=== PATIENT | male | born 1960 ===

== ENCOUNTER 2018-11-25 16:08 | Inpatient (IN) | payer MEDICARE ==
[2018-11-25 17:02] LABS: BASO # 0.1 K/uL (0.0-0.2); BASO % 1.1 % (0.0-2.0); EOS # 0.1 K/uL (0.0-0.7); EOS % 1.7 % (0.0-4.0); HEMOGLOBIN 11.2 g/dL (12.0-18.0); LYMPH # 0.7 K/uL (1.0-4.3); LYMPH % 11.6 % (20.0-40.0); MEAN CELL VOLUME 92.4 fL (80.0-94.0); MEAN CORPUSCULAR HEMOGLOBIN 29.2 pg (27.0-31.0); MEAN CORPUSCULAR HGB CONC 31.7 g/dL (33.0-37.0); MEAN PLATELET VOLUME 7.6 fL (7.2-11.7); MONO # 0.8 K/uL (0.0-0.8); MONO % 14.5 % (0.0-10.0); NEUT % 71.1 % (50.0-75.0); NRBC % 0.1 % (0.0-2.0); RBC 3.82 Mil/uL (4.40-5.90); RED CELL DISTRIBUTION WIDTH 20.3 % (11.5-14.5); WHITE BLOOD COUNT 5.7 K/uL (4.8-10.8)
[2018-11-25 17:12] LABS: INR 1.6
--- NOTE | 2018-11-25 17:23 | C.PDOC ---
History Of Present Illness 57 y/o male,w/PMhx of HTN, hypercholesterolemia, and ESRD presents to the ER complaining of shortness of breath which has been present for the past 3 days. Patient states that he was evaluated by Dr. Tesfaye who referred him to the ER. Patient reports that he has dialysis on Mondays, Wednesdays, and Fridays. He notes that he is on Dobutamine for poor ejection fraction. He has a portacath to the right upper chest for the past 2 months. He is concerned there may be an infection in the area. Denies having fever,chills, CP, vomitng, and abdominal pain. Time Seen by Provider: 11/25/18 16:34 Chief Complaint (Nursing): Shortness Of Breath History Per: Patient History/Exam Limitations: no limitations Onset/Duration Of Symptoms: Days Current Symptoms Are (Timing): Still Present Severity: Moderate Past Medical History Reviewed: Historical Data, Nursing Documentation, Vital Signs Vital Signs: Last Vital Signs Temp 97.7 F 11/25/18 16:14 Pulse 90 11/25/18 16:14 Resp 18 11/25/18 16:50 BP 104/72 11/25/18 16:14 Pulse Ox 99 11/25/18 16:14 - Medical History PMH: HTN, Hypercholesterolemia, End Stage Renal Disease Other Surgeries: Hx of surgeries Family History: States: No Known Family Hx - Social History Hx Alcohol Use: No Hx Substance Use: No - Immunization History Hx Tetanus Toxoid Vaccination: No Hx Influenza Vaccination: Yes Hx Pneumococcal Vaccination: No Review Of Systems Except As Marked, All Systems Reviewed And Found Negative. Constitutional: Negative for: Fever, Chills Cardiovascular: Negative for: Chest Pain Respiratory: Positive for: Shortness of Breath Gastrointestinal: Negative for: Nausea, Vomiting Physical Exam - Physical Exam Appears: Non-toxic, No Acute Distress Skin: Normal Color, Warm, Dry Head: Atraumatic, Normacephalic Eye(s): bilateral: Normal Inspection Nose: Normal Oral Mucosa: Moist Neck: Supple Chest: Symmetrical, Other (catheter in right upper chest) Cardiovascular: Rhythm Regular Respiratory: Rales (rales in bases bilaterally), No Rhonchi, No Wheezing Neurological/Psych: Oriented x3, Normal Speech ED Course And Treatment - Laboratory Results Result Diagrams: 11/25/18 16:58 11/25/18 16:58 Lab Results: PT 18.0 SECONDS (9.7-12.2) H 11/25/18 16:58 INR 1.6 11/25/18 16:58 APTT 43 SECONDS (21-34) H 11/25/18 16:58 Lab Interpretation: Abnormal (trop neg, BNP 15,800 H) ECG Rhythm: V Paced ECG Interpretation: Normal Rate From EC O2 Sat by Pulse Oximetry: 99 (RA) Pulse Ox Interpretation: Normal - Radiology CXR: Interpreted by Me CXR Interpretation: Yes: Other (+CHF) Reevaluation Time: 18:30 Reassessment Condition: Improved - Physician Consult Information Outcome Of Conversation: 1635: d/w Dr. Boggs ok to adm. 1800: dw Dr. Simeon in ED, ok to consult Medical Decision Making Medical Decision Making: Plan: --Labs --ECG --CXR Updates: 16:35 Case discussed with patient's PMD, . advises for patient to be admitted. Disposition Doctor Will See Patient In The: Hospital Counseled Patient/Family Regarding: Studies Performed, Diagnosis - Disposition Disposition: HOSPITALIZED Disposition Time: 19:12 Condition: GOOD - Clinical Impression Clinical Impression: Chronic congestive heart failure, ESRD (end stage renal disease) on dialysis - Scribe Statement The provider has reviewed the documentation as recorded by the Eliza Landis Provider Attestation: All medical record entries made by the Jerryibe were at my direction and personally dictated by me. I have reviewed the chart and agree that the record accurately reflects my personal performance of the history, physical exam, medical decision making, and the department course for this patient. I have also personally directed, reviewed, and agree with the discharge instructions and disposition.
[2018-11-25 17:30] LABS: ALB/GLOB RATIO 1.1 (1.0-2.1); ALBUMIN 3.7 g/dL (3.5-5.0); CALCIUM 8.9 mg/dl (8.6-10.4)
--- NOTE | 2018-11-25 17:36 | C.PDOC ---
Time Seen by Provider: 11/25/18 16:34 Chief Complaint (Nursing): Shortness Of Breath Past Medical History Vital Signs: Last Vital Signs Temp 97.7 F 11/25/18 16:14 Pulse 90 11/25/18 16:14 Resp 22 11/25/18 16:14 BP 104/72 11/25/18 16:14 Pulse Ox 99 11/25/18 16:14 - Medical History PMH: HTN, Hypercholesterolemia, End Stage Renal Disease - Social History Hx Alcohol Use: No Hx Substance Use: No - Immunization History Hx Tetanus Toxoid Vaccination: No Hx Influenza Vaccination: Yes Hx Pneumococcal Vaccination: No ED Course And Treatment O2 Sat by Pulse Oximetry: 99 Disposition - Disposition
[2018-11-25 17:41] LABS: TROPONIN I 0.03 ng/mL (0.00-0.120)
--- NOTE | 2018-11-25 17:46 | RAD ---
HISTORY: SOB COMPARISON: None available. TECHNIQUE: Chest, one view. FINDINGS: Examination limited by habitus and hypoinflation. Right IJ approach dialysis catheter with distal tips at the SVC/cavoatrial junction. LUNGS: Central vascular and mild pulmonary venous congestion. Small left pleural effusion associated consolidation. No definite pneumothorax. Please note that chest x-ray has limited sensitivity for the detection of pulmonary masses. CARDIOVASCULAR: Cardiomegaly. No significant atherosclerotic calcification present. OSSEOUS STRUCTURES: No acute osseous abnormality identified. VISUALIZED UPPER ABDOMEN: Unremarkable. OTHER FINDINGS: None. IMPRESSION: Right IJ approach dialysis catheter with distal tips at the SVC/cavoatrial junction. Central vascular and mild pulmonary venous congestion. Small left pleural effusion associated consolidation. Cardiomegaly.
--- NOTE | 2018-11-25 18:16 | CP.PCM.HP ---
Past Patient History - Infectious Disease Hx of Infectious Diseases: None - Past Social History Smoking Status: Never Smoked - CARDIAC Hx Hypercholesterolemia: Yes Hx Hypertension: Yes - PULMONARY Hx Respiratory Disorders: No - RENAL Hx Dialysis: Yes (MWF) Type of Dialysis Access: Right subclavian HD catheter Date of Last Dialysis Treatment: 11/24/18 - PSYCHIATRIC Hx Substance Use: No - SURGICAL HISTORY Hx Surgeries: Yes Other/Comment: AICD placement and permacath cath placement - ANESTHESIA Hx Anesthesia: Yes Hx Anesthesia Reactions: No Hx Malignant Hyperthermia: No Meds Allergies/Adverse Reactions: Allergies Allergy/AdvReac Type Severity Reaction Status Date / Time No Known Allergies Allergy Verified 11/25/18 16:20 Results - Vital Signs Recent Vital Signs: Last Vital Signs Temp 97.7 F 11/25/18 16:14 Pulse 90 11/25/18 16:14 Resp 18 11/25/18 16:50 BP 104/72 11/25/18 16:14 Pulse Ox 99 11/25/18 17:32 - Labs Result Diagrams: 11/25/18 16:58 11/25/18 16:58 Labs: Laboratory Results - last 24 hr 11/25/18 11/25/18 11/25/18 16:58 16:58 16:58 WBC 5.7 RBC 3.82 L Hgb 11.2 L Hct 35.3 MCV 92.4 MCH 29.2 MCHC 31.7 L RDW 20.3 H Plt Count 216 MPV 7.6 Neut % (Auto) 71.1 Lymph % (Auto) 11.6 L [place] % (Auto) 14.5 H Eos % (Auto) 1.7 Baso % (Auto) 1.1 Neut # (Auto) 4.0 Lymph # (Auto) 0.7 L [place] # (Auto) 0.8 Eos # (Auto) 0.1 Baso # (Auto) 0.1 PT 18.0 H INR 1.6 APTT 43 H Sodium 135 Potassium 3.0 L Chloride 95 L Carbon Dioxide 33 H Anion Gap 10 BUN 19 Creatinine 3.4 H Est GFR ( Amer) 23 Est GFR (Non-Af Amer) 19 Random Glucose 108 Calcium 8.9 Total Bilirubin 0.8 AST 34 ALT 28 Alkaline Phosphatase 93 Troponin I 0.0300 NT-Pro-B Natriuret Pep 57894 H Total Protein 6.9 Albumin 3.7 Globulin 3.3 Albumin/Globulin Ratio 1.1
--- NOTE | 2018-11-25 19:45 | CP.PCM.CON ---
History of Present Illness - History of Present Illness History of Present Illness: Vascular Surgery Consult for Dr. Simeon Reason for consult: ESRD on HD, need AVF 57 M with PMH that includes CHF ESRD on HD MWF, cardiomyopathy, SVT, s/p AICD placement and s/p right IJ permcath presents to [facility] with complaint of SOB. Patient seen and evaluated in the ED. Patient states that he developed difficulty breathing over the last two days. He reports that he can only walk two blocks before getting SOB. He uses two pillows at night. Patient unsure of last echo. He had recent [place] [facility] [place] and bacteremia. Patient reports that he makes urine but does not produce much. Patient takes inotropes at home. Currently denies fever/chills, cp, SOB, abd pain, n/v/d, urinary symptoms. Vascular surgery consulted for AVF access. PMH: CHF, ESRD on HD (MWF), cardiomyopathy, SVT PSH: AICD placement, RIJ permacath ALL: NKDA Review of Systems - Review of Systems All systems: reviewed and no additional remarkable complaints except (as per HPI) Past Patient History - Infectious Disease Hx of Infectious Diseases: None - Past Social History Smoking Status: Never Smoked - CARDIAC Hx Hypercholesterolemia: Yes Hx Hypertension: Yes - PULMONARY Hx Respiratory Disorders: No - RENAL Hx Dialysis: Yes (MWF) Type of Dialysis Access: Right subclavian HD catheter Date of Last Dialysis Treatment: 11/24/18 - PSYCHIATRIC Hx Substance Use: No - SURGICAL HISTORY Hx Surgeries: Yes Other/Comment: AICD placement and permacath cath placement - ANESTHESIA Hx Anesthesia: Yes Hx Anesthesia Reactions: No Hx Malignant Hyperthermia: No Meds Allergies/Adverse Reactions: Allergies Allergy/AdvReac Type Severity Reaction Status Date / Time No Known Allergies Allergy Verified 11/25/18 16:20 - Medications Medications: Current Medications Amiodarone HCl (Cordarone) 400 mg PO DAILY [facility] Aspirin (Aspirin Chewable) 81 mg PO DAILY [facility] Ezetimibe (Zetia) 10 mg PO DAILY [facility] Furosemide (Lasix) 40 mg PO DAILY [facility] Heparin Sodium (Porcine) (Heparin) 5,000 units SC Q8 [facility] Home Med (Febuxostat [Uloric]) 40 mg PO DAILY [facility] Midodrine (Proamatine) 5 mg PO TID [facility] Rosuvastatin Calcium (Crestor) 10 mg PO HS [facility] Tamsulosin HCl (Flomax) 0.4 mg PO DAILY [facility] Physical Exam - Constitutional Appears: No Acute Distress - Head Exam Head Exam: ATRAUMATIC, NORMOCEPHALIC - Eye Exam Eye Exam: EOMI Pupil Exam: PERRL - ENT Exam ENT Exam: Mucous Membranes Moist - Respiratory Exam Respiratory Exam: NORMAL BREATHING PATTERN - Cardiovascular Exam Cardiovascular Exam: REGULAR RHYTHM - GI/Abdominal Exam GI & Abdominal Exam: Normal Bowel Sounds, Soft. absent: Distended, Firm, [place] ound, Rigid, Tenderness - Extremities Exam Extremities exam: Positive for: normal capillary refill, pedal edema, pedal pulses present - Back Exam Back exam: absent: CVA tenderness (L), CVA tenderness (R) - Neurological Exam Neurological exam: Alert, CN II-XII Intact, Oriented x3 - Psychiatric Exam Psychiatric exam: Normal Affect, Normal Mood - Skin Skin Exam: Dry, Intact, Warm Results - Vital Signs Recent Vital Signs: Last Vital Signs Temp 98.2 F 11/25/18 19:28 Pulse 80 11/25/18 19:28 Resp 22 11/25/18 19:28 BP 120/83 11/25/18 19:28 Pulse Ox 97 11/25/18 19:28 - Labs Result Diagrams: 11/25/18 16:58 11/25/18 16:58 Labs: Laboratory Results - last 24 hr 11/25/18 11/25/18 11/25/18 16:58 16:58 16:58 WBC 5.7 RBC 3.82 L Hgb 11.2 L Hct 35.3 MCV 92.4 MCH 29.2 MCHC 31.7 L RDW 20.3 H Plt Count 216 MPV 7.6 Neut % (Auto) 71.1 Lymph % (Auto) 11.6 L [place] % (Auto) 14.5 H Eos % (Auto) 1.7 Baso % (Auto) 1.1 Neut # (Auto) 4.0 Lymph # (Auto) 0.7 L [place] # (Auto) 0.8 Eos # (Auto) 0.1 Baso # (Auto) 0.1 PT 18.0 H INR 1.6 APTT 43 H Sodium 135 Potassium 3.0 L Chloride 95 L Carbon Dioxide 33 H Anion Gap 10 BUN 19 Creatinine 3.4 H Est GFR ( Amer) 23 Est GFR (Non-Af Amer) 19 Random Glucose 108 Calcium 8.9 Total Bilirubin 0.8 AST 34 ALT 28 Alkaline Phosphatase 93 Troponin I 0.0300 NT-Pro-B Natriuret Pep 86307 H Total Protein 6.9 Albumin 3.7 Globulin 3.3 Albumin/Globulin Ratio 1.1 Assessment & Plan - Assessment and Plan (Free Text) Assessment: 57M with PMH of ESRD on HD who presents with SOB requiring AVF access Plan: -f/u vein mapping -Arm restriction after vein mapping -Please no antecubital IVs due to possibility of AVF -Medicine and cardiac risk stratification before OR -Plan for OR tuesday 11/28 if plausible -Discussed with Dr. Cailin Ruiz PGY2 - Date & Time Date: 11/25/18 Time: 19:00
[2018-11-25] MEDS ORDERED: Promethazine 6.25 MG/5 ML CUP PO PRN (21:19)
[2018-11-25] MEDS: Promethazine 6.25 MG/5 ML CUP PO PRN (21:58)
--- NOTE | 2018-11-26 07:27 | CP.PCM.CON ---
History of Present Illness - History of Present Illness History of Present Illness: 57 yo male, known to me, history of cardiomyopathy, SVT, recent start of HD. On HD M,W,F. Using a right IJ permcath. Recent admit to [facility] for CHF, bacteremia. Now presents with increased SOB on exertion. Last HD on Saturday, 2 kg uf. No chest pain or palpitations. No fever or chills. Minimal urine production. Not clear how much he drinks. On inotropes at home. Review of Systems - Constitutional Constitutional: Fatigue. absent: Fever - EENT Eyes: absent: Blurred Vision, Change in Vision Nose/Mouth/Throat: absent: Epistaxis, Nasal Congestion - Cardiovascular Cardiovascular: Dyspnea on Exertion, Edema - Respiratory Respiratory: absent: Cough, Wheezing - Gastrointestinal Gastrointestinal: absent: Abdominal Pain - Genitourinary Genitourinary: Change in Urinary Stream - Musculoskeletal Musculoskeletal: absent: Muscle Cramps, Muscle Weakness - Hematologic/Lymphatic Hematologic: absent: Easy Bleeding, Easy Bruising Past Patient History - Infectious Disease Hx of Infectious Diseases: None - Past Social History Smoking Status: Never Smoked - CARDIAC Hx Hypercholesterolemia: Yes Hx Hypertension: Yes - PULMONARY Hx Respiratory Disorders: No - RENAL Hx Dialysis: Yes (MWF) Type of Dialysis Access: Right subclavian HD catheter Date of Last Dialysis Treatment: 11/24/18 - PSYCHIATRIC Hx Substance Use: No - SURGICAL HISTORY Hx Surgeries: Yes Other/Comment: AICD placement and permacath cath placement - ANESTHESIA Hx Anesthesia: Yes Hx Anesthesia Reactions: No Hx Malignant Hyperthermia: No Meds Allergies/Adverse Reactions: Allergies Allergy/AdvReac Type Severity Reaction Status Date / Time No Known Allergies Allergy Verified 11/25/18 16:20 - Medications Medications: Current Medications Amiodarone HCl (Cordarone) 400 mg PO DAILY [facility] Aspirin (Aspirin Chewable) 81 mg PO DAILY [facility] Ezetimibe (Zetia) 10 mg PO DAILY [facility] Furosemide (Lasix) 40 mg PO DAILY [facility] Heparin Sodium (Porcine) (Heparin) 5,000 units SC Q8 [facility] Last Admin: 11/26/18 06:40 Dose: Not Given Home Med (Febuxostat [Uloric]) 40 mg PO DAILY [facility] Midodrine (Proamatine) 5 mg PO TID [facility] Promethazine HCl (Phenergan Syrup) 12.5 mg PO Q6H PRN PRN Reason: Cough Last Admin: 11/25/18 21:58 Dose: 12.5 mg Rosuvastatin Calcium (Crestor) 10 mg PO HS [facility] Last Admin: 11/25/18 22:00 Dose: 10 mg Tamsulosin HCl (Flomax) 0.4 mg PO DAILY [facility] Zolpidem Tartrate (Ambien) 5 mg PO HS PRN PRN Reason: Insomnia Last Admin: 11/25/18 21:58 Dose: 5 mg Physical Exam - Constitutional Appears: Non-toxic, Chronically Ill - Head Exam Head Exam: ATRAUMATIC, NORMAL INSPECTION - Eye Exam Eye Exam: EOMI - ENT Exam ENT Exam: Mucous Membranes Dry - Neck Exam Neck exam: Positive for: Full Rom. Negative for: Lymphadenopathy - Respiratory Exam Respiratory Exam: Decreased Breath Sounds, Rales - Cardiovascular Exam Cardiovascular Exam: REGULAR RHYTHM. absent: Rubs - GI/Abdominal Exam GI & Abdominal Exam: Distended, Firm. absent: Guarding - Extremities Exam Extremities exam: Positive for: pedal edema - Neurological Exam Neurological exam: Alert, Oriented x3 - Psychiatric Exam Psychiatric exam: Normal Affect, Normal Mood Results - Vital Signs Recent Vital Signs: Last Vital Signs Temp 98.2 F 11/25/18 23:30 Pulse 81 11/26/18 01:00 Resp 20 11/25/18 23:30 BP 118/85 11/25/18 23:30 Pulse Ox 99 11/25/18 23:30 - Labs Result Diagrams: 11/25/18 16:58 11/25/18 16:58 Labs: Laboratory Results - last 24 hr 11/25/18 11/25/18 11/25/18 16:58 16:58 16:58 WBC 5.7 RBC 3.82 L Hgb 11.2 L Hct 35.3 MCV 92.4 MCH 29.2 MCHC 31.7 L RDW 20.3 H Plt Count 216 MPV 7.6 Neut % (Auto) 71.1 Lymph % (Auto) 11.6 L [place] % (Auto) 14.5 H Eos % (Auto) 1.7 Baso % (Auto) 1.1 Neut # (Auto) 4.0 Lymph # (Auto) 0.7 L [place] # (Auto) 0.8 Eos # (Auto) 0.1 Baso # (Auto) 0.1 PT 18.0 H INR 1.6 APTT 43 H Sodium 135 Potassium 3.0 L Chloride 95 L Carbon Dioxide 33 H Anion Gap 10 BUN 19 Creatinine 3.4 H Est GFR ( Amer) 23 Est GFR (Non-Af Amer) 19 Random Glucose 108 Calcium 8.9 Total Bilirubin 0.8 AST 34 ALT 28 Alkaline Phosphatase 93 Troponin I 0.0300 NT-Pro-B Natriuret Pep 98493 H Total Protein 6.9 Albumin 3.7 Globulin 3.3 Albumin/Globulin Ratio 1.1 Assessment & Plan - Assessment and Plan (Free Text) Assessment: dialysis dependent, xray with suggestion of fluid overload increase goal on HD today and consider extra treatment in am 3K bath on HD cardiology to see, repeat echo try to obtain TROY on admission fluid restriction
[2018-11-26 12:08] LABS: CALCIUM 8.9 mg/dl (8.6-10.4)
--- NOTE | 2018-11-26 13:02 | CP.PCM.PN ---
Subjective - Date & Time of Evaluation Date of Evaluation: 11/26/18 Time of Evaluation: 10:30 - Subjective Subjective: Vascular Surgery Dr. Simeon Pt seen and examined @bedside. No acute events overnight. Pt has no complaints. reports improved SOB, though still present w/ exertion. Objective - Vital Signs/Intake and Output Vital Signs (last 24 hours): Temp Pulse Resp BP Pulse Ox 98.1 F 80 20 131/91 H 92 L 11/26/18 07:00 11/26/18 07:00 11/26/18 07:00 11/26/18 11:07 11/26/18 07:00 - Medications Medications: Current Medications Amiodarone HCl (Cordarone) 400 mg PO DAILY [facility] Last Admin: 11/26/18 11:04 Dose: 400 mg Aspirin (Aspirin Chewable) 81 mg PO DAILY [facility] Last Admin: 11/26/18 11:09 Dose: Not Given Ezetimibe (Zetia) 10 mg PO DAILY [facility] Last Admin: 11/26/18 11:18 Dose: 10 mg Furosemide (Lasix) 40 mg PO DAILY [facility] Last Admin: 11/26/18 11:07 Dose: 40 mg Heparin Sodium (Porcine) (Heparin) 5,000 units SC Q8 [facility] Last Admin: 11/26/18 06:40 Dose: Not Given Home Med (Febuxostat [Uloric]) 40 mg PO DAILY [facility] Midodrine (Proamatine) 5 mg PO TID [facility] Last Admin: 11/26/18 11:18 Dose: 5 mg Promethazine HCl (Phenergan Syrup) 12.5 mg PO Q6H PRN PRN Reason: Cough Last Admin: 11/25/18 21:58 Dose: 12.5 mg Rosuvastatin Calcium (Crestor) 10 mg PO HS [facility] Last Admin: 11/25/18 22:00 Dose: 10 mg Tamsulosin HCl (Flomax) 0.4 mg PO DAILY [facility] Last Admin: 11/26/18 11:04 Dose: 0.4 mg Zolpidem Tartrate (Ambien) 5 mg PO HS PRN PRN Reason: Insomnia Last Admin: 11/25/18 21:58 Dose: 5 mg - Labs Labs: 11/25/18 16:58 11/26/18 11:33 PT 18.0 SECONDS (9.7-12.2) H 11/25/18 16:58 INR 1.6 11/25/18 16:58 APTT 43 SECONDS (21-34) H 11/25/18 16:58 - Constitutional Appears: Non-toxic, No Acute Distress - Head Exam Head Exam: NORMAL INSPECTION - Eye Exam Eye Exam: Normal appearance - ENT Exam ENT Exam: Mucous Membranes Moist - Respiratory Exam Respiratory Exam: NORMAL BREATHING PATTERN. absent: Accessory Muscle Use, Respiratory Distress - Cardiovascular Exam Cardiovascular Exam: REGULAR RHYTHM. absent: Bradycardia, Tachycardia - GI/Abdominal Exam GI & Abdominal Exam: Soft. absent: Distended, Tenderness - Extremities Exam Extremities Exam: Normal Inspection - Neurological Exam Neurological Exam: Alert, Awake, Oriented x3 - Psychiatric Exam Psychiatric exam: Normal Affect, Normal Mood - Skin Skin Exam: Dry, Intact, Normal Color, Warm Assessment and Plan - Assessment and Plan (Free Text) Assessment: 57 y/o M w/ ESRD on HD MWF, requiring AVF creation Plan: - needs cardiac workup - f/u vein mapping - OR tentatively planned for Saturday - cont medical management Pt discussed w/ Dr. Cailin Ace DO PGY3
--- NOTE | 2018-11-26 18:30 | CARD ---
APPROVED REPORT Date of service: 11/25/2018 EKG Measurement Heart [id number] <Conclusion> Ventricular-paced rhythm Abnormal ECG
--- NOTE | 2018-11-26 19:09 | CP.PCM.PN ---
Subjective - Date & Time of Evaluation Date of Evaluation: 11/26/18 Time of Evaluation: 19:09 Objective - Vital Signs/Intake and Output Vital Signs (last 24 hours): Temp Pulse Resp BP Pulse Ox 99.7 F H 82 20 125/87 100 11/26/18 18:11 11/26/18 18:11 11/26/18 18:11 11/26/18 18:11 11/26/18 18:11 - Medications Medications: Current Medications Amiodarone HCl (Cordarone) 400 mg PO DAILY [facility] Last Admin: 11/26/18 11:04 Dose: 400 mg Aspirin (Aspirin Chewable) 81 mg PO DAILY [facility] Last Admin: 11/26/18 11:09 Dose: Not Given Ezetimibe (Zetia) 10 mg PO DAILY [facility] Last Admin: 11/26/18 11:18 Dose: 10 mg Furosemide (Lasix) 40 mg PO DAILY [facility] Last Admin: 11/26/18 11:07 Dose: 40 mg Heparin Sodium (Porcine) (Heparin) 5,000 units SC Q8 [facility] Last Admin: 11/26/18 15:14 Dose: Not Given Heparin Sodium (Porcine) (Heparin (For Dialysis)) 4,100 units IVP MWF [facility] Last Admin: 11/26/18 17:33 Dose: 4,100 units Home Med (Febuxostat [Uloric]) 40 mg PO DAILY [facility] Midodrine (Proamatine) 5 mg PO TID [facility] Last Admin: 11/26/18 18:13 Dose: 5 mg Promethazine HCl (Phenergan Syrup) 12.5 mg PO Q6H PRN PRN Reason: Cough Last Admin: 11/25/18 21:58 Dose: 12.5 mg Rosuvastatin Calcium (Crestor) 10 mg PO HS [facility] Last Admin: 11/25/18 22:00 Dose: 10 mg Tamsulosin HCl (Flomax) 0.4 mg PO DAILY [facility] Last Admin: 11/26/18 11:04 Dose: 0.4 mg Zolpidem Tartrate (Ambien) 5 mg PO HS PRN PRN Reason: Insomnia Last Admin: 11/25/18 21:58 Dose: 5 mg - Labs Labs: 11/25/18 16:58 11/26/18 11:33 PT 18.0 SECONDS (9.7-12.2) H 11/25/18 16:58 INR 1.6 11/25/18 16:58 APTT 43 SECONDS (21-34) H 11/25/18 16:58 Assessment and Plan (1) CHF exacerbation Status: Acute (2) Cardiomegaly Status: Acute (3) Chronic congestive heart failure Status: Acute (4) ESRD (end stage renal disease) on dialysis Status: Acute
[2018-11-26] MEDS: Promethazine 6.25 MG/5 ML CUP PO PRN (21:59)
--- NOTE | 2018-11-27 08:01 | CP.PCM.PN ---
Subjective - Date & Time of Evaluation Date of Evaluation: 11/27/18 Time of Evaluation: 07:59 - Subjective Subjective: SURGERY NOTE FOR DR. CATHERINE 57M seen and examined at bedside. Patient doing well no acute events overnight. Objective - Vital Signs/Intake and Output Vital Signs (last 24 hours): Temp Pulse Resp BP Pulse Ox 98.8 F 81 20 109/69 96 11/26/18 23:30 11/27/18 01:00 11/26/18 23:30 11/26/18 23:30 11/26/18 23:30 - Medications Medications: Current Medications Amiodarone HCl (Cordarone) 400 mg PO DAILY [facility] Last Admin: 11/26/18 11:04 Dose: 400 mg Aspirin (Aspirin Chewable) 81 mg PO DAILY [facility] Last Admin: 11/26/18 11:09 Dose: Not Given Ezetimibe (Zetia) 10 mg PO DAILY [facility] Last Admin: 11/26/18 11:18 Dose: 10 mg Furosemide (Lasix) 40 mg PO DAILY [facility] Last Admin: 11/26/18 11:07 Dose: 40 mg Heparin Sodium (Porcine) (Heparin) 5,000 units SC Q8 [facility] Last Admin: 11/27/18 06:17 Dose: 5,000 units Heparin Sodium (Porcine) (Heparin (For Dialysis)) 4,100 units IVP MWF [facility] Last Admin: 11/26/18 17:33 Dose: 4,100 units Home Med (Febuxostat [Uloric]) 40 mg PO DAILY [facility] Midodrine (Proamatine) 5 mg PO TID [facility] Last Admin: 11/26/18 18:13 Dose: 5 mg Promethazine HCl (Phenergan Syrup) 12.5 mg PO Q6H PRN PRN Reason: Cough Last Admin: 11/26/18 21:59 Dose: 12.5 mg Rosuvastatin Calcium (Crestor) 10 mg PO HS [facility] Last Admin: 11/26/18 21:58 Dose: 10 mg Tamsulosin HCl (Flomax) 0.4 mg PO DAILY [facility] Last Admin: 11/26/18 11:04 Dose: 0.4 mg Zolpidem Tartrate (Ambien) 5 mg PO HS PRN PRN Reason: Insomnia Last Admin: 11/25/18 21:58 Dose: 5 mg - Labs Labs: 11/25/18 16:58 11/26/18 11:33 PT 18.0 SECONDS (9.7-12.2) H 11/25/18 16:58 INR 1.6 11/25/18 16:58 APTT 43 SECONDS (21-34) H 11/25/18 16:58 - Constitutional Appears: Non-toxic, No Acute Distress - Respiratory Exam Respiratory Exam: Clear to Ausculation Bilateral, NORMAL BREATHING PATTERN - Cardiovascular Exam Cardiovascular Exam: REGULAR RHYTHM, +S1, +S2 - GI/Abdominal Exam GI & Abdominal Exam: Soft. absent: Distended, Firm, Guarding, Rigid, Tenderness - Extremities Exam Extremities Exam: absent: Pedal Edema, Tenderness - Neurological Exam Neurological Exam: Alert, Awake Assessment and Plan - Assessment and Plan (Free Text) Assessment: 57M with ESRD requiring dialysis Plan: - Plan AVF for Saturday - Awaiting cardiac clearance - Will pre-op Further recs per Dr. Cailin Matos, PGY3
--- NOTE | 2018-11-27 10:00 | CP.PCM.PN ---
Subjective - Date & Time of Evaluation Date of Evaluation: 11/27/18 Time of Evaluation: 09:58 - Subjective Subjective: Less dyspneic awaiting AV fistula creation; off anticoagulants now BP controlled no more dyspnea; no CPs, n, vomiting, chills, fevers Objective - Vital Signs/Intake and Output Vital Signs (last 24 hours): Temp Pulse Resp BP Pulse Ox 98.1 F 80 20 117/79 94 L 11/27/18 07:45 11/27/18 07:45 11/27/18 07:45 11/27/18 09:37 11/27/18 07:45 - Medications Medications: Current Medications Amiodarone HCl (Cordarone) 400 mg PO DAILY [facility] Last Admin: 11/27/18 09:35 Dose: 400 mg Aspirin (Aspirin Chewable) 81 mg PO DAILY [facility] Last Admin: 11/27/18 09:35 Dose: 81 mg Ezetimibe (Zetia) 10 mg PO DAILY [facility] Last Admin: 11/27/18 09:36 Dose: 10 mg Heparin Sodium (Porcine) (Heparin) 5,000 units SC Q8 [facility] Last Admin: 11/27/18 06:17 Dose: 5,000 units Heparin Sodium (Porcine) (Heparin (For Dialysis)) 4,100 units IVP MWF [facility] Last Admin: 11/26/18 17:33 Dose: 4,100 units Home Med (Febuxostat [Uloric]) 40 mg PO DAILY [facility] Midodrine (Proamatine) 5 mg PO TID [facility] Last Admin: 11/27/18 09:36 Dose: 5 mg Promethazine HCl (Phenergan Syrup) 12.5 mg PO Q6H PRN PRN Reason: Cough Last Admin: 11/26/18 21:59 Dose: 12.5 mg Rosuvastatin Calcium (Crestor) 10 mg PO HS [facility] Last Admin: 11/26/18 21:58 Dose: 10 mg Tamsulosin HCl (Flomax) 0.4 mg PO DAILY [facility] Last Admin: 11/27/18 09:35 Dose: 0.4 mg Zolpidem Tartrate (Ambien) 5 mg PO HS PRN PRN Reason: Insomnia Last Admin: 11/25/18 21:58 Dose: 5 mg - Labs Labs: 11/25/18 16:58 11/26/18 11:33 PT 18.0 SECONDS (9.7-12.2) H 11/25/18 16:58 INR 1.6 11/25/18 16:58 APTT 43 SECONDS (21-34) H 11/25/18 16:58 - Constitutional Appears: No Acute Distress, Chronically Ill - Head Exam Head Exam: ATRAUMATIC, NORMAL INSPECTION - Eye Exam Eye Exam: EOMI, Normal appearance - Neck Exam Neck Exam: Normal Inspection. absent: Tenderness - Respiratory Exam Respiratory Exam: Clear to Ausculation Bilateral, NORMAL BREATHING PATTERN - Cardiovascular Exam Cardiovascular Exam: REGULAR RHYTHM, +S1 - GI/Abdominal Exam GI & Abdominal Exam: Soft. absent: Tenderness - Extremities Exam Extremities Exam: Normal Inspection. absent: Tenderness - Neurological Exam Neurological Exam: Awake, CN II-XII Intact - Skin Skin Exam: Dry, Warm Assessment and Plan (1) CHF exacerbation Status: Acute (2) ESRD (end stage renal disease) on dialysis Status: Acute (3) Cardiomegaly Status: Acute - Assessment and Plan (Free Text) Plan: dialysis today- as possible AV access surgery in AM Adequate UF goal- CHF prevention Await surgery
--- NOTE | 2018-11-27 12:49 | VASCLAB ---
Date of service: 11/26/2018 PROCEDURE: Upper Extremity Venous Mapping HISTORY: Vein mapping, Renal Failure, Pre-op AVF PRIORS: None. TECHNIQUE: Bilateral upper extremity, internal jugular, subclavian, axillary, brachial, ulnar, radial, basilic and upper cephalic veins were evaluated. Flow was assessed with color Doppler, compressibility, assessment of phasic flow and augmentation response. Report prepared by JAIRO Martin FINDINGS: RIGHT: 1. Internal Jugular Vein: 2. Subclavian Vein: 3. Axillary Vein: Compressibility - Fully compressible: Thrombus - None 4. Brachial Vein: Compressibility - Fully compressible: Thrombus - None 5. Ulnar Vein:Compressibility - Fully compressible: Thrombus - None 6. Radial Vein:Compressibility - Fully compressible: Thrombus - None 7. Cephalic Vein: Compressibility - Fully compressible: thrombus - None 7.1. Upper Arm: Mid Diameter: 0.67cm. Distal Diameter: 0.71cm. 7.2. Forearm: Proximal Diameter: 0.52cm. Mid Diameter:0.34cm. Distal Diameter: 0.29cm 8. Basilic Vein:Compressibility - Fully compressible: thrombus - None 8.1. Upper Arm:Proximal Diameter: 0.49cm. Mid Diameter: 0.41cm. Distal Diameter: 0.27cm. 8.2. Forearm: Proximal Diameter: 0.29cm. Mid Diameter:0.25cm. Distal Diameter: 0.29cm. LEFT: 1. Internal Jugular Vein: Compressibility - Fully compressible: Thrombus - None : Flow - Phasic 2. Subclavian Vein:Compressibility - Fully compressible: Thrombus - None : Flow - Phasic 3. Axillary Vein: Compressibility - Fully compressible: Thrombus - None 4. Brachial Vein: Compressibility - Fully compressible: Thrombus - None 5. Ulnar Vein:Compressibility - Fully compressible: Thrombus - None 6. Radial Vein:Compressibility - Fully compressible: Thrombus - None 7. Cephalic Vein: Compressibility - Fully compressible: thrombus - None 7.1. Upper Arm: Proximal Diameter: 0.54cm. Mid Diameter: 0.52cm. Distal Diameter: 0.63cm. 7.2. Forearm: Proximal Diameter: 0.41cm. Mid Diameter:0.41cm. Distal Diameter: 0.42cm 8. Basilic Vein:Compressibility - Fully compressible: thrombus - None 8.1. Upper Arm: Mid Diameter: 0.60cm. Distal Diameter: 0.53cm. 8.2. Forearm: Proximal Diameter: 0.44cm. Mid Diameter:0.21cm. OTHER FINDINGS: No evidence of venous thrombosis in bilateral upper extremities. IMPRESSION: Refer to the above listed measurements for vein size.
--- NOTE | 2018-11-27 13:54 | CP.PCM.PN ---
Subjective - Date & Time of Evaluation Date of Evaluation: 11/27/18 Time of Evaluation: 13:50 - Subjective Subjective: Pt is seen and examined No events overnight Reports improved dyspnea Objective - Vital Signs/Intake and Output Vital Signs (last 24 hours): Temp Pulse Resp BP Pulse Ox 98.1 F 80 20 117/79 94 L 11/27/18 07:45 11/27/18 07:45 11/27/18 07:45 11/27/18 09:37 11/27/18 07:45 - Medications Medications: Current Medications Amiodarone HCl (Cordarone) 400 mg PO DAILY [facility] Last Admin: 11/27/18 09:35 Dose: 400 mg Aspirin (Aspirin Chewable) 81 mg PO DAILY [facility] Last Admin: 11/27/18 09:35 Dose: 81 mg Ezetimibe (Zetia) 10 mg PO DAILY [facility] Last Admin: 11/27/18 09:36 Dose: 10 mg Heparin Sodium (Porcine) (Heparin) 5,000 units SC Q8 [facility] Last Admin: 11/27/18 13:30 Dose: Not Given Heparin Sodium (Porcine) (Heparin (For Dialysis)) 4,100 units IVP MWF [facility] Last Admin: 11/26/18 17:33 Dose: 4,100 units Home Med (Febuxostat [Uloric]) 40 mg PO DAILY [facility] Midodrine (Proamatine) 5 mg PO TID [facility] Last Admin: 11/27/18 13:30 Dose: Not Given Promethazine HCl (Phenergan Syrup) 12.5 mg PO Q6H PRN PRN Reason: Cough Last Admin: 11/26/18 21:59 Dose: 12.5 mg Rosuvastatin Calcium (Crestor) 10 mg PO HS [facility] Last Admin: 11/26/18 21:58 Dose: 10 mg Tamsulosin HCl (Flomax) 0.4 mg PO DAILY [facility] Last Admin: 11/27/18 09:35 Dose: 0.4 mg Zolpidem Tartrate (Ambien) 5 mg PO HS PRN PRN Reason: Insomnia Last Admin: 11/25/18 21:58 Dose: 5 mg - Labs Labs: 11/25/18 16:58 11/26/18 11:33 PT 18.0 SECONDS (9.7-12.2) H 11/25/18 16:58 INR 1.6 11/25/18 16:58 APTT 43 SECONDS (21-34) H 11/25/18 16:58 - Head Exam Head Exam: NORMAL INSPECTION - Eye Exam Eye Exam: Normal appearance - ENT Exam ENT Exam: Mucous Membranes Moist - Respiratory Exam Respiratory Exam: Clear to Ausculation Bilateral - Cardiovascular Exam Cardiovascular Exam: REGULAR RHYTHM, +S1, +S2 - GI/Abdominal Exam GI & Abdominal Exam: Soft, Normal Bowel Sounds - Extremities Exam Extremities Exam: Normal Inspection - Neurological Exam Neurological Exam: Alert, Oriented x3 - Psychiatric Exam Psychiatric exam: Normal Affect, Normal Mood Assessment and Plan (1) CHF exacerbation Status: Acute (2) Cardiomegaly Status: Acute (3) Chronic congestive heart failure Status: Acute (4) ESRD (end stage renal disease) on dialysis Status: Acute - Assessment and Plan (Free Text) Plan: Needs continued HD Keep pt negative balance Still dyspnic For AVF in Am Awaiting cardiology clearance COntinue rest of care
[2018-11-27] MEDS: guaiFENesin 200 mg/10 ml Syrup UD PO PRN ×2 (18:08→22:35)
[2018-11-28] MEDS ORDERED: Sodium Chloride 0.9% 1,000 ML IV SCH (07:15)
[2018-11-28 12:49] LABS: CALCIUM 8.6 mg/dl (8.6-10.4)
--- NOTE | 2018-11-28 13:11 | CP.PCM.PN ---
Subjective - Date & Time of Evaluation Date of Evaluation: 11/28/18 Time of Evaluation: 13:09 - Subjective Subjective: s/p dialysis 11/27 On IV saline now? awaiting cardio clearance for AV access next dialysis in AM Objective - Vital Signs/Intake and Output Vital Signs (last 24 hours): Temp Pulse Resp BP Pulse Ox 97.6 F 82 20 95/59 L 97 11/28/18 07:07 11/28/18 07:07 11/28/18 07:07 11/28/18 07:07 11/28/18 07:07 - Medications Medications: Current Medications Allopurinol (Zyloprim) 100 mg PO DAILY [facility] Last Admin: 11/28/18 12:21 Dose: 100 mg Amiodarone HCl (Cordarone) 400 mg PO DAILY [facility] Last Admin: 11/28/18 12:21 Dose: 400 mg Aspirin (Aspirin Chewable) 81 mg PO DAILY [facility] Last Admin: 11/27/18 09:35 Dose: 81 mg Ezetimibe (Zetia) 10 mg PO DAILY [facility] Last Admin: 11/28/18 12:23 Dose: 10 mg Guaifenesin (Robitussin) 200 mg PO Q4H PRN PRN Reason: Cough and congestion Last Admin: 11/27/18 22:35 Dose: 200 mg Heparin Sodium (Porcine) (Heparin) 5,000 units SC Q8 [facility] Last Admin: 11/28/18 06:56 Dose: Not Given Heparin Sodium (Porcine) (Heparin (For Dialysis)) 4,100 units IVP MWF [facility] Last Admin: 11/27/18 17:07 Dose: 4,100 units Sodium Chloride (Sodium Chloride 0.9%) 1,000 mls @ 100 mls/hr IV .Q10H [facility] Last Admin: 11/28/18 07:48 Dose: 100 mls/hr Midodrine (Proamatine) 5 mg PO TID [facility] Last Admin: 11/28/18 12:22 Dose: 5 mg Promethazine HCl (Phenergan Syrup) 12.5 mg PO Q6H PRN PRN Reason: Cough Last Admin: 11/26/18 21:59 Dose: 12.5 mg Rosuvastatin Calcium (Crestor) 10 mg PO HS [facility] Last Admin: 11/27/18 22:32 Dose: 10 mg Tamsulosin HCl (Flomax) 0.4 mg PO DAILY [facility] Last Admin: 11/28/18 12:22 Dose: 0.4 mg Zolpidem Tartrate (Ambien) 5 mg PO HS PRN PRN Reason: Insomnia Last Admin: 11/25/18 21:58 Dose: 5 mg - Labs Labs: 11/25/18 16:58 11/28/18 12:00 PT 18.0 SECONDS (9.7-12.2) H 11/25/18 16:58 INR 1.6 11/25/18 16:58 APTT 43 SECONDS (21-34) H 11/25/18 16:58 - Constitutional Appears: No Acute Distress, Chronically Ill - Head Exam Head Exam: ATRAUMATIC, NORMAL INSPECTION - Eye Exam Eye Exam: EOMI, Normal appearance - Neck Exam Neck Exam: Normal Inspection. absent: Tenderness - Respiratory Exam Respiratory Exam: Clear to Ausculation Bilateral, NORMAL BREATHING PATTERN - Cardiovascular Exam Cardiovascular Exam: REGULAR RHYTHM, +S1 - GI/Abdominal Exam GI & Abdominal Exam: Soft. absent: Tenderness - Extremities Exam Extremities Exam: Normal Inspection. absent: Tenderness - Neurological Exam Neurological Exam: Awake, CN II-XII Intact - Skin Skin Exam: Dry, Warm Assessment and Plan (1) CHF exacerbation Status: Acute (2) ESRD (end stage renal disease) on dialysis Status: Acute (3) Cardiomegaly Status: Acute - Assessment and Plan (Free Text) Plan: stop IV fluids as patient with recent CHF episode Increase midodrine dose Await AV fistula placement Dialysis in AM
[2018-11-28] MEDS ORDERED: ceFAZolin 1 gm in NS 0 GM/0 ML BAG IVPB ONE (13:51)
[2018-11-28] MEDS ORDERED: HEPARIN-NS 5,000 UNITS/500 ML 5,000 UNIT/500 ML BAG IV ONE (13:52)
--- NOTE | 2018-11-28 14:05 | RAD ---
Date of service: 11/28/2018 HISTORY: cough COMPARISON: 11/25/2018. FINDINGS: Right-sided dialysis catheter terminates at the cavoatrial junction. LUNGS: The lungs are well inflated. There is mild pulmonary venous congestion. PLEURA: No pleural effusions or pneumothorax. CARDIOVASCULAR: There is persistent severe cardiomegaly with prominent central vasculature. There is stable position of left-sided permanent pacing device. No aortic atherosclerotic calcifications present. OSSEOUS STRUCTURES: Within normal limits for the patient's age. VISUALIZED UPPER ABDOMEN: Normal. OTHER FINDINGS: None. IMPRESSION: No active pulmonary disease. Severe cardiomegaly and mild pulmonary venous congestion.
[2018-11-28] MEDS: Promethazine 6.25 MG/5 ML CUP PO PRN ×2 (14:46→19:52)
--- NOTE | 2018-11-28 15:00 | CP.PCM.CON ---
History of Present Illness - History of Present Illness History of Present Illness: Chart imaging labs reviewed Mr. 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 and has an ICD implanted This profile would increase perioperative cardiovascular risks including pulmonary edema and ICD discharges Given the emergent need for the procedure would proceed and minimize risks by maintaining euvolemia operating avoiding general anesthesia and placing a magnet over the ICD during the duration of surgery If cautery is used would us bipolar cautery and place the grounding pad on the right extremity and avoid prolonged use Past Patient History - Infectious Disease Hx of Infectious Diseases: None - Past Social History Smoking Status: Never Smoked - CARDIAC Hx Hypercholesterolemia: Yes Hx Hypertension: Yes - PULMONARY Hx Respiratory Disorders: No - RENAL Hx Dialysis: Yes (MWF) Type of Dialysis Access: Right subclavian HD catheter Date of Last Dialysis Treatment: 11/27/18 - MUSCULOSKELETAL/RHEUMATOLOGICAL Hx Falls: No - PSYCHIATRIC Hx Substance Use: No - SURGICAL HISTORY Hx Surgeries: Yes Other/Comment: AICD placement and permacath cath placement - ANESTHESIA Hx Anesthesia: Yes Hx Anesthesia Reactions: No Hx Malignant Hyperthermia: No Meds Allergies/Adverse Reactions: Allergies Allergy/AdvReac Type Severity Reaction Status Date / Time No Known Allergies Allergy Verified 11/25/18 16:20 - Medications Medications: Current Medications Allopurinol (Zyloprim) 100 mg PO DAILY [facility] Last Admin: 11/28/18 12:21 Dose: 100 mg Amiodarone HCl (Cordarone) 400 mg PO DAILY [facility] Last Admin: 11/28/18 12:21 Dose: 400 mg Aspirin (Aspirin Chewable) 81 mg PO DAILY [facility] Last Admin: 11/27/18 09:35 Dose: 81 mg Ezetimibe (Zetia) 10 mg PO DAILY [facility] Last Admin: 11/28/18 12:23 Dose: 10 mg Guaifenesin (Robitussin) 200 mg PO Q4H PRN PRN Reason: Cough and congestion Last Admin: 11/27/18 22:35 Dose: 200 mg Heparin Sodium (Porcine) (Heparin) 5,000 units SC Q8 [facility] Last Admin: 11/28/18 06:56 Dose: Not Given Heparin Sodium (Porcine) (Heparin (For Dialysis)) 4,100 units IVP MWF [facility] Last Admin: 11/27/18 17:07 Dose: 4,100 units Midodrine (Proamatine) 10 mg PO BID [facility] Promethazine HCl (Phenergan Syrup) 12.5 mg PO Q6H PRN PRN Reason: Cough Last Admin: 11/28/18 14:46 Dose: 12.5 mg Rosuvastatin Calcium (Crestor) 10 mg PO HS [facility] Last Admin: 11/27/18 22:32 Dose: 10 mg Tamsulosin HCl (Flomax) 0.4 mg PO DAILY [facility] Last Admin: 11/28/18 12:22 Dose: 0.4 mg Zolpidem Tartrate (Ambien) 5 mg PO HS PRN PRN Reason: Insomnia Last Admin: 11/25/18 21:58 Dose: 5 mg Results - Vital Signs Recent Vital Signs: Last Vital Signs Temp 97.6 F 11/28/18 07:07 Pulse 82 11/28/18 07:07 Resp 20 11/28/18 07:07 BP 95/59 L 11/28/18 07:07 Pulse Ox 97 11/28/18 07:07 - Labs Result Diagrams: 11/25/18 16:58 11/28/18 12:00 Labs: Laboratory Results - last 24 hr 11/28/18 12:00 Sodium 133 Potassium 3.2 L Chloride 97 L Carbon Dioxide 25 Anion Gap 14 BUN 23 H Creatinine 3.0 H Est GFR ( Amer) 26 Est GFR (Non-Af Amer) 22 Random Glucose 92 D Calcium 8.6 Phosphorus 3.4 Magnesium 2.1
--- NOTE | 2018-11-28 15:25 | CP.PCM.PN ---
Subjective - Date & Time of Evaluation Date of Evaluation: 11/28/18 Time of Evaluation: 15:24 Objective - Vital Signs/Intake and Output Vital Signs (last 24 hours): Temp Pulse Resp BP Pulse Ox 97.6 F 82 20 95/59 L 97 11/28/18 07:07 11/28/18 07:07 11/28/18 07:07 11/28/18 07:07 11/28/18 07:07 - Medications Medications: Current Medications Allopurinol (Zyloprim) 100 mg PO DAILY [facility] Last Admin: 11/28/18 12:21 Dose: 100 mg Amiodarone HCl (Cordarone) 400 mg PO DAILY [facility] Last Admin: 11/28/18 12:21 Dose: 400 mg Aspirin (Aspirin Chewable) 81 mg PO DAILY [facility] Last Admin: 11/27/18 09:35 Dose: 81 mg Ezetimibe (Zetia) 10 mg PO DAILY [facility] Last Admin: 11/28/18 12:23 Dose: 10 mg Guaifenesin (Robitussin) 200 mg PO Q4H PRN PRN Reason: Cough and congestion Last Admin: 11/27/18 22:35 Dose: 200 mg Heparin Sodium (Porcine) (Heparin) 5,000 units SC Q8 [facility] Last Admin: 11/28/18 06:56 Dose: Not Given Heparin Sodium (Porcine) (Heparin (For Dialysis)) 4,100 units IVP MWF [facility] Last Admin: 11/27/18 17:07 Dose: 4,100 units Midodrine (Proamatine) 10 mg PO BID [facility] Promethazine HCl (Phenergan Syrup) 12.5 mg PO Q6H PRN PRN Reason: Cough Last Admin: 11/28/18 14:46 Dose: 12.5 mg Rosuvastatin Calcium (Crestor) 10 mg PO HS [facility] Last Admin: 11/27/18 22:32 Dose: 10 mg Tamsulosin HCl (Flomax) 0.4 mg PO DAILY [facility] Last Admin: 11/28/18 12:22 Dose: 0.4 mg Zolpidem Tartrate (Ambien) 5 mg PO HS PRN PRN Reason: Insomnia Last Admin: 11/25/18 21:58 Dose: 5 mg - Labs Labs: 11/25/18 16:58 11/28/18 12:00 PT 18.0 SECONDS (9.7-12.2) H 03/26/19 16:58 INR 1.6 11/25/18 16:58 APTT 43 SECONDS (21-34) H 11/25/18 16:58 Assessment and Plan (1) CHF exacerbation Status: Acute (2) Cardiomegaly Status: Acute (3) Chronic congestive heart failure Status: Acute (4) ESRD (end stage renal disease) on dialysis Status: Acute
--- NOTE | 2018-11-29 09:58 | CP.PCM.PN ---
Subjective - Date & Time of Evaluation Date of Evaluation: 11/29/18 Time of Evaluation: 09:56 - Subjective Subjective: seen on dialysis tolarating well UF goal 3000 cc some cough no chest pain afebrile ROS- as per hPI, other than that 10 point ROS negative Objective - Vital Signs/Intake and Output Vital Signs (last 24 hours): Temp Pulse Resp BP Pulse Ox 97.5 F L 79 20 91/54 L 100 11/29/18 09:05 11/29/18 09:05 11/29/18 09:05 11/29/18 09:20 11/29/18 09:05 Intake and Output: 11/29/18 11/29/18 06:59 18:59 Intake Total 10 Balance 10 - Medications Medications: Current Medications Allopurinol (Zyloprim) 100 mg PO DAILY [facility] Last Admin: 11/28/18 12:21 Dose: 100 mg Amiodarone HCl (Cordarone) 400 mg PO DAILY [facility] Last Admin: 11/28/18 12:21 Dose: 400 mg Aspirin (Aspirin Chewable) 81 mg PO DAILY [facility] Last Admin: 11/27/18 09:35 Dose: 81 mg Ezetimibe (Zetia) 10 mg PO DAILY [facility] Last Admin: 11/28/18 12:23 Dose: 10 mg Guaifenesin (Robitussin) 200 mg PO Q4H PRN PRN Reason: Cough and congestion Last Admin: 11/27/18 22:35 Dose: 200 mg Heparin Sodium (Porcine) (Heparin) 5,000 units SC Q8 [facility] Last Admin: 11/28/18 06:56 Dose: Not Given Heparin Sodium (Porcine) (Heparin (For Dialysis)) 4,100 units IVP MWF [facility] Last Admin: 11/27/18 17:07 Dose: 4,100 units Midodrine (Proamatine) 10 mg PO BID [facility] Promethazine HCl (Phenergan Syrup) 12.5 mg PO Q6H PRN PRN Reason: Cough Last Admin: 11/28/18 19:52 Dose: 12.5 mg Rosuvastatin Calcium (Crestor) 10 mg PO HS [facility] Last Admin: 11/28/18 21:17 Dose: 10 mg Tamsulosin HCl (Flomax) 0.4 mg PO DAILY [facility] Last Admin: 11/28/18 12:22 Dose: 0.4 mg Zolpidem Tartrate (Ambien) 5 mg PO HS PRN PRN Reason: Insomnia Last Admin: 11/28/18 21:17 Dose: 5 mg - Labs Labs: 11/25/18 16:58 11/28/18 12:00 PT 18.0 SECONDS (9.7-12.2) H 11/25/18 16:58 INR 1.6 11/25/18 16:58 APTT 43 SECONDS (21-34) H 11/25/18 16:58 - Constitutional Appears: Well, Non-toxic - Head Exam Head Exam: ATRAUMATIC, NORMOCEPHALIC - Eye Exam Eye Exam: EOMI, PERRL - ENT Exam ENT Exam: Mucous Membranes Moist - Neck Exam Neck Exam: Full ROM, Normal Inspection - Respiratory Exam Respiratory Exam: Clear to Ausculation Bilateral. absent: Rhonchi, Wheezes - Cardiovascular Exam Cardiovascular Exam: REGULAR RHYTHM, +S1, +S2 - GI/Abdominal Exam GI & Abdominal Exam: Soft. absent: Distended, Tenderness - Extremities Exam Extremities Exam: Full ROM. absent: Pedal Edema - Neurological Exam Neurological Exam: Alert, Awake, Oriented x3 - Psychiatric Exam Psychiatric exam: Normal Affect, Normal Mood - Skin Skin Exam: Intact, Warm Assessment and Plan (1) CHF exacerbation Status: Acute (2) Cardiomegaly Status: Acute (3) Chronic congestive heart failure Status: Acute (4) ESRD (end stage renal disease) on dialysis Status: Acute - Assessment and Plan (Free Text) Plan: HD today UF goal 3000 cc if tolerated by BP fluid restriction av fistula surgery on saturday Next HD saturday
--- NOTE | 2018-11-29 10:00 | CP.PCM.PN ---
Subjective - Date & Time of Evaluation Date of Evaluation: 11/29/18 Time of Evaluation: 10:00 - Subjective Subjective: plan is avf saturday obviously patient is higher risk Objective - Vital Signs/Intake and Output Vital Signs (last 24 hours): Temp Pulse Resp BP Pulse Ox 97.5 F L 79 20 91/54 L 100 11/29/18 09:05 11/29/18 09:05 11/29/18 09:05 11/29/18 09:20 11/29/18 09:05 Intake and Output: 11/29/18 11/29/18 06:59 18:59 Intake Total 10 Balance 10 - Medications Medications: Current Medications Allopurinol (Zyloprim) 100 mg PO DAILY [facility] Last Admin: 11/28/18 12:21 Dose: 100 mg Amiodarone HCl (Cordarone) 400 mg PO DAILY [facility] Last Admin: 11/28/18 12:21 Dose: 400 mg Aspirin (Aspirin Chewable) 81 mg PO DAILY [facility] Last Admin: 11/27/18 09:35 Dose: 81 mg Ezetimibe (Zetia) 10 mg PO DAILY [facility] Last Admin: 11/28/18 12:23 Dose: 10 mg Guaifenesin (Robitussin) 200 mg PO Q4H PRN PRN Reason: Cough and congestion Last Admin: 11/27/18 22:35 Dose: 200 mg Heparin Sodium (Porcine) (Heparin) 5,000 units SC Q8 [facility] Last Admin: 11/28/18 06:56 Dose: Not Given Heparin Sodium (Porcine) (Heparin (For Dialysis)) 4,100 units IVP MWF [facility] Last Admin: 11/27/18 17:07 Dose: 4,100 units Midodrine (Proamatine) 10 mg PO BID [facility] Promethazine HCl (Phenergan Syrup) 12.5 mg PO Q6H PRN PRN Reason: Cough Last Admin: 11/28/18 19:52 Dose: 12.5 mg Rosuvastatin Calcium (Crestor) 10 mg PO HS [facility] Last Admin: 11/28/18 21:17 Dose: 10 mg Tamsulosin HCl (Flomax) 0.4 mg PO DAILY [facility] Last Admin: 11/28/18 12:22 Dose: 0.4 mg Zolpidem Tartrate (Ambien) 5 mg PO HS PRN PRN Reason: Insomnia Last Admin: 11/28/18 21:17 Dose: 5 mg - Labs Labs: 11/25/18 16:58 11/28/18 12:00 PT 18.0 SECONDS (9.7-12.2) H 11/25/18 16:58 INR 1.6 11/25/18 16:58 APTT 43 SECONDS (21-34) H 11/25/18 16:58
[2018-11-29] MEDS: guaiFENesin 200 mg/10 ml Syrup UD PO PRN (14:37)
[2018-11-30] MEDS: guaiFENesin 200 mg/10 ml Syrup UD PO PRN ×2 (04:51→17:37)
--- NOTE | 2018-11-30 10:04 | CP.PCM.PN ---
Subjective - Date & Time of Evaluation Date of Evaluation: 11/30/18 Time of Evaluation: 10:02 - Subjective Subjective: Vascular Surgery Dr. Simeon Pt seen and examined @bedside. No acute events overnight. Pt has no complaints this AM. discussed plan for surgery tomorrow and is agreeable. NPO @[place]. Objective - Vital Signs/Intake and Output Vital Signs (last 24 hours): Temp Pulse Resp BP Pulse Ox 98.5 F 80 18 106/74 95 11/30/18 07:30 11/30/18 09:05 11/30/18 07:30 11/30/18 07:30 11/30/18 07:30 - Medications Medications: Current Medications Allopurinol (Zyloprim) 100 mg PO DAILY [facility] Last Admin: 11/29/18 10:30 Dose: Not Given Amiodarone HCl (Cordarone) 400 mg PO DAILY [facility] Last Admin: 11/29/18 10:30 Dose: Not Given Aspirin (Aspirin Chewable) 81 mg PO DAILY [facility] Last Admin: 11/29/18 10:30 Dose: Not Given Ezetimibe (Zetia) 10 mg PO DAILY [facility] Last Admin: 11/29/18 10:30 Dose: Not Given Guaifenesin (Robitussin) 200 mg PO Q4H PRN PRN Reason: Cough and congestion Last Admin: 11/30/18 04:51 Dose: 200 mg Heparin Sodium (Porcine) (Heparin) 5,000 units SC Q8 [facility] Last Admin: 11/28/18 06:56 Dose: Not Given Heparin Sodium (Porcine) (Heparin (For Dialysis)) 4,100 units IVP MWF [facility] Last Admin: 11/29/18 12:38 Dose: 4,100 units Midodrine (Proamatine) 10 mg PO BID [facility] Last Admin: 11/29/18 17:42 Dose: 10 mg Promethazine HCl (Phenergan Syrup) 12.5 mg PO Q6H PRN PRN Reason: Cough Last Admin: 11/28/18 19:52 Dose: 12.5 mg Rosuvastatin Calcium (Crestor) 10 mg PO HS [facility] Last Admin: 11/29/18 21:29 Dose: 10 mg Tamsulosin HCl (Flomax) 0.4 mg PO DAILY [facility] Last Admin: 11/29/18 10:30 Dose: Not Given Zolpidem Tartrate (Ambien) 5 mg PO HS PRN PRN Reason: Insomnia Last Admin: 11/29/18 21:29 Dose: 5 mg - Labs Labs: 11/25/18 16:58 11/28/18 12:00 PT 18.0 SECONDS (9.7-12.2) H 11/25/18 16:58 INR 1.6 11/25/18 16:58 APTT 43 SECONDS (21-34) H 11/25/18 16:58 - Constitutional Appears: Non-toxic, No Acute Distress - Head Exam Head Exam: NORMAL INSPECTION - Eye Exam Eye Exam: Normal appearance - ENT Exam ENT Exam: Mucous Membranes Moist - Respiratory Exam Respiratory Exam: NORMAL BREATHING PATTERN. absent: Accessory Muscle Use, Respiratory Distress - Cardiovascular Exam Cardiovascular Exam: REGULAR RHYTHM. absent: Bradycardia, Tachycardia - GI/Abdominal Exam GI & Abdominal Exam: Soft. absent: Distended, Tenderness - Extremities Exam Extremities Exam: Normal Inspection - Neurological Exam Neurological Exam: Alert, Awake, Oriented x3 - Psychiatric Exam Psychiatric exam: Normal Affect, Normal Mood - Skin Skin Exam: Dry, Intact, Normal Color, Warm Assessment and Plan - Assessment and Plan (Free Text) Assessment: 57 y/o M w/ ESRD on HD, requiring AVF Plan: - NPO@MD - labs - HD today if possible - hold HD tomorrow for OR Pt discussed w/ Dr. Cailin Ace DO PGY3
[2018-11-30] MEDS: Promethazine 6.25 MG/5 ML CUP PO PRN ×2 (10:06→21:57)
--- NOTE | 2018-11-30 17:41 | CP.PCM.PN ---
Subjective - Date & Time of Evaluation Date of Evaluation: 11/30/18 Time of Evaluation: 17:40 Objective - Vital Signs/Intake and Output Vital Signs (last 24 hours): Temp Pulse Resp BP Pulse Ox 98.0 F 80 20 127/80 97 11/30/18 15:05 11/30/18 16:09 11/30/18 15:05 11/30/18 15:05 11/30/18 15:05 Intake and Output: 11/30/18 11/30/18 06:59 18:59 Intake Total 540 Balance 540 - Medications Medications: Current Medications Allopurinol (Zyloprim) 100 mg PO DAILY [facility] Last Admin: 11/30/18 10:05 Dose: 100 mg Amiodarone HCl (Cordarone) 400 mg PO DAILY [facility] Last Admin: 11/30/18 10:05 Dose: 400 mg Aspirin (Aspirin Chewable) 81 mg PO DAILY [facility] Last Admin: 11/30/18 10:05 Dose: 81 mg Ezetimibe (Zetia) 10 mg PO DAILY [facility] Last Admin: 11/30/18 10:05 Dose: 10 mg Guaifenesin (Robitussin) 200 mg PO Q4H PRN PRN Reason: Cough and congestion Last Admin: 11/30/18 17:37 Dose: 200 mg Heparin Sodium (Porcine) (Heparin) 5,000 units SC Q8 [facility] Last Admin: 11/30/18 14:27 Dose: 5,000 units Heparin Sodium (Porcine) (Heparin (For Dialysis)) 4,100 units IVP MWF [facility] Last Admin: 11/29/18 12:38 Dose: 4,100 units Midodrine (Proamatine) 10 mg PO BID [facility] Last Admin: 11/30/18 17:37 Dose: 10 mg Promethazine HCl (Phenergan Syrup) 12.5 mg PO Q6H PRN PRN Reason: Cough Last Admin: 11/30/18 10:06 Dose: 12.5 mg Rosuvastatin Calcium (Crestor) 10 mg PO HS [facility] Last Admin: 11/29/18 21:29 Dose: 10 mg Tamsulosin HCl (Flomax) 0.4 mg PO DAILY [facility] Last Admin: 11/30/18 10:06 Dose: 0.4 mg Zolpidem Tartrate (Ambien) 5 mg PO HS PRN PRN Reason: Insomnia Last Admin: 11/29/18 21:29 Dose: 5 mg - Labs Labs: 11/25/18 16:58 11/28/18 12:00 PT 18.0 SECONDS (9.7-12.2) H 11/25/18 16:58 INR 1.6 11/25/18 16:58 APTT 43 SECONDS (21-34) H 11/25/18 16:58 Assessment and Plan (1) CHF exacerbation Status: Acute (2) Cardiomegaly Status: Acute (3) Chronic congestive heart failure Status: Acute (4) ESRD (end stage renal disease) on dialysis Status: Acute
[2018-12-01 06:55] LABS: HEMOGLOBIN 10.8 g/dL (12.0-18.0); MEAN CELL VOLUME 90.4 fL (80.0-94.0); MEAN CORPUSCULAR HEMOGLOBIN 30.3 pg (27.0-31.0); MEAN CORPUSCULAR HGB CONC 33.6 g/dL (33.0-37.0); MEAN PLATELET VOLUME 8.6 fL (7.2-11.7); RBC 3.57 Mil/uL (4.40-5.90); RED CELL DISTRIBUTION WIDTH 19.9 % (11.5-14.5); WHITE BLOOD COUNT 5.1 K/uL (4.8-10.8)
[2018-12-01] MEDS: Albuterol-Ipratrop 3 mg / 0.5 (3 ml) UD INH SCH ×3 (07:29→19:29)
[2018-12-01 07:41] LABS: CALCIUM 8.4 mg/dl (8.6-10.4)
[2018-12-01] MEDS ORDERED: ceFAZolin 1 gm in NS 2 GM/200 ML BAG IVPB ONE (09:03)
[2018-12-01] MEDS ORDERED: HEPARIN-NS 5,000 UNITS/500 ML 5,000 UNIT/500 ML BAG IV ONE (09:04)
[2018-12-01] MEDS: guaiFENesin 200 mg/10 ml Syrup UD PO PRN ×2 (09:18→18:17)
[2018-12-01] MEDS ORDERED: Lidocaine 2% MPF (5 ml) Inj ONE ×2 (10:37)
[2018-12-01] MEDS ORDERED: Midazolam 2 MG/2 ML VIAL ONE ×2 (10:43→11:53)
--- NOTE | 2018-12-01 11:32 | CP.PCM.PN ---
Subjective - Date & Time of Evaluation Date of Evaluation: 12/01/18 Time of Evaluation: 11:29 - Subjective Subjective: seen pre surgery for AV access surgery today K was low- repleted pre surgery less cough, less dyspnea Objective - Vital Signs/Intake and Output Vital Signs (last 24 hours): Temp Pulse Resp BP Pulse Ox 98.0 F 79 18 109/75 90 L 12/01/18 08:01 12/01/18 08:01 12/01/18 08:01 12/01/18 08:01 12/01/18 08:01 - Medications Medications: Current Medications Albuterol/Ipratropium (Duoneb 3 Mg/0.5 Mg (3 Ml) Ud) 3 ml INH RQ6 [facility] Allopurinol (Zyloprim) 100 mg PO DAILY [facility] Last Admin: 12/01/18 09:19 Dose: 100 mg Amiodarone HCl (Cordarone) 400 mg PO DAILY [facility] Last Admin: 12/01/18 09:20 Dose: Not Given Aspirin (Aspirin Chewable) 81 mg PO DAILY [facility] Last Admin: 12/01/18 09:19 Dose: Not Given Ezetimibe (Zetia) 10 mg PO DAILY [facility] Last Admin: 12/01/18 09:19 Dose: 10 mg Guaifenesin (Robitussin) 200 mg PO Q4H PRN PRN Reason: Cough and congestion Last Admin: 12/01/18 09:18 Dose: 200 mg Heparin Sodium (Porcine) (Heparin) 5,000 units SC Q8 [facility] Last Admin: 11/30/18 21:57 Dose: 5,000 units Heparin Sodium (Porcine) (Heparin (For Dialysis)) 4,100 units IVP MWF [facility] Last Admin: 11/29/18 12:38 Dose: 4,100 units Potassium Chloride (Potassium Chloride 20 Meq/100 Ml) 20 meq in 100 mls @ 50 mls/hr IVPB ONCE ONE Stop: 12/01/18 11:59 Last Admin: 12/01/18 09:18 Dose: 50 mls/hr Midodrine (Proamatine) 10 mg PO BID [facility] Last Admin: 12/01/18 09:19 Dose: 10 mg Promethazine HCl (Phenergan Syrup) 12.5 mg PO Q6H PRN PRN Reason: Cough Last Admin: 11/30/18 21:57 Dose: 12.5 mg Rosuvastatin Calcium (Crestor) 10 mg PO HS [facility] Last Admin: 11/30/18 21:57 Dose: 10 mg Tamsulosin HCl (Flomax) 0.4 mg PO DAILY [facility] Last Admin: 12/01/18 09:19 Dose: 0.4 mg Zolpidem Tartrate (Ambien) 5 mg PO HS PRN PRN Reason: Insomnia Last Admin: 12/01/18 00:00 Dose: 5 mg - Labs Labs: 12/01/18 06:43 12/01/18 06:43 PT 18.0 SECONDS (9.7-12.2) H 11/25/18 16:58 INR 1.6 11/25/18 16:58 APTT 43 SECONDS (21-34) H 11/25/18 16:58 - Constitutional Appears: No Acute Distress, Chronically Ill - Head Exam Head Exam: ATRAUMATIC, NORMAL INSPECTION - Eye Exam Eye Exam: EOMI, Normal appearance - Neck Exam Neck Exam: Normal Inspection. absent: Tenderness - Respiratory Exam Respiratory Exam: Clear to Ausculation Bilateral, NORMAL BREATHING PATTERN - Cardiovascular Exam Cardiovascular Exam: REGULAR RHYTHM, +S1 - GI/Abdominal Exam GI & Abdominal Exam: Soft. absent: Tenderness - Extremities Exam Extremities Exam: Normal Inspection. absent: Tenderness - Skin Skin Exam: Dry, Warm Assessment and Plan (1) CHF exacerbation Status: Acute (2) ESRD (end stage renal disease) on dialysis Status: Acute (3) Cardiomegaly Status: Acute - Assessment and Plan (Free Text) Plan: AV fistula now dialysis in AM; adequate UF goal fluid restriction po- na low K repleted
[2018-12-01] MEDS ORDERED: HYDROmorphone 0.5 mg/0.5 ml ISec IVP PRN (12:42)
--- NOTE | 2018-12-01 12:46 | PCM.SURG1 ---
Surgeon's Initial Post Op Note - Surgeon's Notes Surgeon: Dr. Simeon Biomathematician: Dr. Nelson, Dr. Arevalo Type of Anesthesia: IV Sedation, Local Pre-Operative Diagnosis: ESRD Operative Findings: postive thrill, 2+ radial pulse post AV fistula creation Post-Operative Diagnosis: ESRD Operation Performed: right brachiocephalic AV fistula creation Specimen/Specimens Removed: none Estimated Blood Loss: EBL {In ML}: 50 Blood Products Given: N/A Drains Used: No Drains Post-Op Condition: Good Date of Surgery/Procedure: 12/01/18 Time of Surgery/Procedure: 11:00
[2018-12-01] MEDS: Promethazine 6.25 MG/5 ML CUP PO PRN ×2 (14:20→21:49)
--- NOTE | 2018-12-01 17:37 | CP.PCM.PN ---
Subjective - Date & Time of Evaluation Date of Evaluation: 12/01/18 Time of Evaluation: 17:37 Objective - Vital Signs/Intake and Output Vital Signs (last 24 hours): Temp Pulse Resp BP Pulse Ox 96.0 F L 80 20 115/72 100 12/01/18 15:15 12/01/18 15:15 12/01/18 15:15 12/01/18 15:15 12/01/18 15:15 Intake and Output: 12/01/18 12/01/18 06:59 18:59 Intake Total 810 Balance 810 - Medications Medications: Current Medications Albuterol/Ipratropium (Duoneb 3 Mg/0.5 Mg (3 Ml) Ud) 3 ml INH RQ6 [facility] Allopurinol (Zyloprim) 100 mg PO DAILY [facility] Last Admin: 12/01/18 09:19 Dose: 100 mg Amiodarone HCl (Cordarone) 400 mg PO DAILY [facility] Last Admin: 12/01/18 09:20 Dose: Not Given Apixaban (Eliquis) 2.5 mg PO BID [facility] Aspirin (Aspirin Chewable) 81 mg PO DAILY [facility] Last Admin: 12/01/18 09:19 Dose: Not Given Ezetimibe (Zetia) 10 mg PO DAILY [facility] Last Admin: 12/01/18 09:19 Dose: 10 mg Guaifenesin (Robitussin) 200 mg PO Q4H PRN PRN Reason: Cough and congestion Last Admin: 12/01/18 09:18 Dose: 200 mg Heparin Sodium (Porcine) (Heparin (For Dialysis)) 4,100 units IVP MWF [facility] Last Admin: 11/29/18 12:38 Dose: 4,100 units Midodrine (Proamatine) 10 mg PO BID [facility] Last Admin: 12/01/18 09:19 Dose: 10 mg Promethazine HCl (Phenergan Syrup) 12.5 mg PO Q6H PRN PRN Reason: Cough Last Admin: 12/01/18 14:20 Dose: 12.5 mg Rosuvastatin Calcium (Crestor) 10 mg PO HS [facility] Last Admin: 11/30/18 21:57 Dose: 10 mg Tamsulosin HCl (Flomax) 0.4 mg PO DAILY [facility] Last Admin: 12/01/18 09:19 Dose: 0.4 mg Zolpidem Tartrate (Ambien) 5 mg PO HS PRN PRN Reason: Insomnia Last Admin: 12/01/18 00:00 Dose: 5 mg - Labs Labs: 12/01/18 06:43 12/01/18 06:43 PT 18.0 SECONDS (9.7-12.2) H 11/25/18 16:58 INR 1.6 11/25/18 16:58 APTT 43 SECONDS (21-34) H 11/25/18 16:58 Assessment and Plan (1) CHF exacerbation Status: Acute (2) Cardiomegaly Status: Acute (3) Chronic congestive heart failure Status: Acute (4) ESRD (end stage renal disease) on dialysis Status: Acute
--- NOTE | 2018-12-01 22:56 | OP ---
PROCEDURE DATE: 12/01/2018 PREOPERATIVE DIAGNOSIS: Renal failure. POSTOPERATIVE DIAGNOSIS: Renal failure. PROCEDURE CARRIED OUT: Placement of AV fistula, right arm brachiocephalic. SURGEON: Willy Simeon Jr., MD ASSISTANTS: Dr. Arevalo and Dr. Nelson ANESTHESIOLOGIST: Dr. Lyles TYPE OF ANESTHESIA: Local with sedation. INDICATIONS: The patient is a middle-aged man with severe cardiomyopathy, on dialysis who was admitted to the hospital with heart failure. I was asked to see him for placement of dialysis access. OPERATIVE FINDINGS: There was a fairly good vein in the right arm, and this was anastomosed in an end-to-side fashion to the brachial artery just above its bifurcation. BLOOD LOSS FOR THE PROCEDURE: 50 to 100 mL. DESCRIPTION OF PROCEDURE: The patient was given local anesthesia and intravenous antibiotics. The vein and artery were dissected at the vein map and was mapped on the field. After mobilizing the vein, ligated tributaries anastomosed using loupe magnification and vessel loop control. The anastomosis was completed. After completion of the anastomosis, there was good flow to the fistula, and there was palpable pulse at the wrist. Blood loss was as mentioned. Operation carried out is brachiocephalic fistula, right elbow. Willy Simeon Jr., MD cc: MD Alejandro Alas MD
[2018-12-02] MEDS: Albuterol-Ipratrop 3 mg / 0.5 (3 ml) UD INH SCH ×3 (01:07→13:11)
[2018-12-02] MEDS ORDERED: oxyCODONE 5 mg Immediate Release Tab PO ONE (02:26)
--- NOTE | 2018-12-02 08:03 | CP.PCM.PN ---
Subjective - Date & Time of Evaluation Date of Evaluation: 12/02/18 Time of Evaluation: 08:01 - Subjective Subjective: Progress Note for Dr. Cailin Kang covering Patient seen and examined at bedside. He is POD1 right brachiocephalic AV fistula. He states that his pain is currently controlled. He has no other complaints. Objective - Vital Signs/Intake and Output Vital Signs (last 24 hours): Temp Pulse Resp BP Pulse Ox 97.4 F L 81 20 109/75 100 12/01/18 23:30 12/02/18 03:45 12/01/18 23:30 12/01/18 23:30 12/01/18 23:30 - Medications Medications: Current Medications Acetaminophen (Tylenol 325mg Tab) 650 mg PO Q6 PRN PRN Reason: Pain, moderate (4-7) Last Admin: 12/02/18 00:02 Dose: 650 mg Albuterol/Ipratropium (Duoneb 3 Mg/0.5 Mg (3 Ml) Ud) 3 ml INH RQ6 [facility] Last Admin: 12/02/18 07:44 Dose: 3 ml Allopurinol (Zyloprim) 100 mg PO DAILY [facility] Last Admin: 12/01/18 09:19 Dose: 100 mg Amiodarone HCl (Cordarone) 400 mg PO DAILY [facility] Last Admin: 12/01/18 09:20 Dose: Not Given Apixaban (Eliquis) 2.5 mg PO BID [facility] Last Admin: 12/01/18 18:17 Dose: 2.5 mg Aspirin (Aspirin Chewable) 81 mg PO DAILY [facility] Last Admin: 12/01/18 09:19 Dose: Not Given Ezetimibe (Zetia) 10 mg PO DAILY [facility] Last Admin: 12/01/18 09:19 Dose: 10 mg Guaifenesin (Robitussin) 200 mg PO Q4H PRN PRN Reason: Cough and congestion Last Admin: 12/01/18 18:17 Dose: 200 mg Heparin Sodium (Porcine) (Heparin (For Dialysis)) 4,100 units IVP MWF [facility] Last Admin: 11/29/18 12:38 Dose: 4,100 units Midodrine (Proamatine) 10 mg PO BID [facility] Last Admin: 12/01/18 18:17 Dose: 10 mg Promethazine HCl (Phenergan Syrup) 12.5 mg PO Q6H PRN PRN Reason: Cough Last Admin: 12/01/18 21:49 Dose: 12.5 mg Rosuvastatin Calcium (Crestor) 10 mg PO HS [facility] Last Admin: 12/01/18 21:49 Dose: 10 mg Tamsulosin HCl (Flomax) 0.4 mg PO DAILY [facility] Last Admin: 12/01/18 09:19 Dose: 0.4 mg Zolpidem Tartrate (Ambien) 5 mg PO HS PRN PRN Reason: Insomnia Last Admin: 12/01/18 21:49 Dose: 5 mg - Labs Labs: 12/01/18 06:43 12/01/18 06:43 PT 18.0 SECONDS (9.7-12.2) H 11/25/18 16:58 INR 1.6 11/25/18 16:58 APTT 43 SECONDS (21-34) H 11/25/18 16:58 - Constitutional Appears: Well, No Acute Distress - Head Exam Head Exam: ATRAUMATIC, NORMOCEPHALIC - Eye Exam Eye Exam: EOMI, PERRL - ENT Exam ENT Exam: Mucous Membranes Moist - Neck Exam Neck Exam: Full ROM - Respiratory Exam Respiratory Exam: NORMAL BREATHING PATTERN - Cardiovascular Exam Cardiovascular Exam: REGULAR RHYTHM, +S1, +S2 - GI/Abdominal Exam GI & Abdominal Exam: Soft, Normal Bowel Sounds - Extremities Exam Additional comments: Right brachiocephalic AV fistula, palpable thrill, Radial pulses 2+ on right - Neurological Exam Neurological Exam: Alert, Awake, Oriented x3 - Psychiatric Exam Psychiatric exam: Normal Affect, Normal Mood - Skin Skin Exam: Dry, Intact, Warm Assessment and Plan - Assessment and Plan (Free Text) Assessment: 57 year old male with ESRD on HD, POD1 right AV fistula. Plan: -No further surgical intervention at this time -Please reconsult as necessary -Follow up with Dr. Simeon in office -Patient cleared for discharge from surgical point of view. Jennifer Sterling, PGY1
[2018-12-02] MEDS: Promethazine 6.25 MG/5 ML CUP PO PRN (08:28)
--- NOTE | 2018-12-02 10:40 | CP.PCM.PN ---
Subjective - Date & Time of Evaluation Date of Evaluation: 12/02/18 Time of Evaluation: 10:40 - Subjective Subjective: presently on dialysis comfortable ROS no sob cogh ,no hemoptysis no chest pain no abd pain,n,v,d Objective - Vital Signs/Intake and Output Vital Signs (last 24 hours): Temp Pulse Resp BP Pulse Ox 97.3 F L 80 20 125/90 100 12/02/18 09:05 12/02/18 09:05 12/02/18 09:05 12/02/18 10:05 12/02/18 09:05 - Medications Medications: Current Medications Acetaminophen (Tylenol 325mg Tab) 650 mg PO Q6 PRN PRN Reason: Pain, moderate (4-7) Last Admin: 12/02/18 00:02 Dose: 650 mg Albuterol/Ipratropium (Duoneb 3 Mg/0.5 Mg (3 Ml) Ud) 3 ml INH RQ6 [facility] Last Admin: 12/02/18 07:44 Dose: 3 ml Allopurinol (Zyloprim) 100 mg PO DAILY [facility] Last Admin: 12/01/18 09:19 Dose: 100 mg Amiodarone HCl (Cordarone) 400 mg PO DAILY [facility] Last Admin: 12/01/18 09:20 Dose: Not Given Apixaban (Eliquis) 2.5 mg PO BID [facility] Last Admin: 12/01/18 18:17 Dose: 2.5 mg Aspirin (Aspirin Chewable) 81 mg PO DAILY [facility] Last Admin: 12/01/18 09:19 Dose: Not Given Ezetimibe (Zetia) 10 mg PO DAILY [facility] Last Admin: 12/01/18 09:19 Dose: 10 mg Guaifenesin (Robitussin) 200 mg PO Q4H PRN PRN Reason: Cough and congestion Last Admin: 12/01/18 18:17 Dose: 200 mg Midodrine (Proamatine) 10 mg PO BID [facility] Last Admin: 12/01/18 18:17 Dose: 10 mg Promethazine HCl (Phenergan Syrup) 12.5 mg PO Q6H PRN PRN Reason: Cough Last Admin: 12/02/18 08:28 Dose: 12.5 mg Rosuvastatin Calcium (Crestor) 10 mg PO HS [facility] Last Admin: 12/01/18 21:49 Dose: 10 mg Tamsulosin HCl (Flomax) 0.4 mg PO DAILY [facility] Last Admin: 12/01/18 09:19 Dose: 0.4 mg Zolpidem Tartrate (Ambien) 5 mg PO HS PRN PRN Reason: Insomnia Last Admin: 12/01/18 21:49 Dose: 5 mg - Labs Labs: 12/01/18 06:43 12/01/18 06:43 PT 18.0 SECONDS (9.7-12.2) H 11/25/18 16:58 INR 1.6 11/25/18 16:58 APTT 43 SECONDS (21-34) H 11/25/18 16:58 - Constitutional Appears: No Acute Distress - Respiratory Exam Respiratory Exam: Clear to Ausculation Bilateral - Cardiovascular Exam Cardiovascular Exam: REGULAR RHYTHM. absent: JVD - GI/Abdominal Exam GI & Abdominal Exam: Soft. absent: Distended, Tenderness - Skin Skin Exam: Dry, Warm Assessment and Plan (1) Cardiomegaly Status: Acute (2) Chronic congestive heart failure Status: Acute (3) ESRD (end stage renal disease) on dialysis Status: Acute - Assessment and Plan (Free Text) Plan: try to remove 3 kg
[2018-12-02] MEDS: guaiFENesin 200 mg/10 ml Syrup UD PO PRN (13:35)
[2018-12-02 16:52] VITALS: BP 107/72; PULSE 80; RESP 20; TEMP 97.4; O2SAT 98
--- NOTE | 2018-12-02 17:12 | PCM.HF ---
Heart Failure Core Measure - Heart Failure Ejection Fraction: Less Than 40 % NIMESH Inhibitor Prescribed: No Contraindication/Reason for not providing: ESRD Beta-Jeremiah Prescribed: None Contraindication/Reason for not providing: low BP Angiotensin II Receptor Jeremiah Prescribed: No Contraindication/Reason for not providing: ESRD AnticoagulationTherapy for Atrial Fibrillation/Atrialflutter: Yes Aldosterone Antagonist Prescribed: No Contraindication/Reason for not providing: low BP Hydralazine Nitrate Prescribed: No Contraindication/Reason for not providing: on amiodaron Implantable Cardioverter Defibrillator Therapy: Yes Cardiac Resynchronization Therapy Prescribed: No Contraindication/Reason for not providing: not indicated - Follow up Will be discharged to: Home Follow Up Date (must be within 7 days from discharge): 12/08/18 Follow Up Time: 10:00
--- NOTE | 2018-12-02 17:14 | CP.PCM.PN ---
Subjective - Date & Time of Evaluation Date of Evaluation: 12/02/18 Time of Evaluation: 17:00 - Subjective Subjective: Alert and orientedx3, complaints of productive cough, no wheezing or distress. Objective - Vital Signs/Intake and Output Vital Signs (last 24 hours): Temp Pulse Resp BP Pulse Ox 97.4 F L 80 20 107/72 98 12/02/18 16:00 12/02/18 16:00 12/02/18 16:00 12/02/18 16:00 12/02/18 16:00 Intake and Output: 12/02/18 12/02/18 06:59 18:59 Intake Total 600 Balance 600 - Medications Medications: Current Medications Acetaminophen (Tylenol 325mg Tab) 650 mg PO Q6 PRN PRN Reason: Pain, moderate (4-7) Last Admin: 12/02/18 00:02 Dose: 650 mg Albuterol/Ipratropium (Duoneb 3 Mg/0.5 Mg (3 Ml) Ud) 3 ml INH RQ6 [facility] Last Admin: 12/02/18 13:11 Dose: Not Given Allopurinol (Zyloprim) 100 mg PO DAILY [facility] Last Admin: 12/02/18 13:26 Dose: 100 mg Amiodarone HCl (Cordarone) 400 mg PO DAILY [facility] Last Admin: 12/02/18 13:27 Dose: 400 mg Apixaban (Eliquis) 2.5 mg PO BID [facility] Last Admin: 12/02/18 10:00 Dose: Not Given Aspirin (Aspirin Chewable) 81 mg PO DAILY [facility] Last Admin: 12/02/18 13:27 Dose: 81 mg Benzocaine/Menthol (Cepacol Sore Throat) 1 ingrid [place] QID [facility] Ezetimibe (Zetia) 10 mg PO DAILY [facility] Last Admin: 12/02/18 10:00 Dose: Not Given Guaifenesin (Robitussin) 200 mg PO Q6H [facility] Ceftriaxone Sodium 1 gm/ (Sodium Chloride) 100 mls @ 100 mls/hr IVPB Q24H [facility]; Protocol Last Admin: 12/02/18 17:09 Dose: 100 mls/hr Midodrine (Proamatine) 10 mg PO BID [facility] Last Admin: 12/02/18 11:55 Dose: Not Given Promethazine HCl (Phenergan Syrup) 12.5 mg PO Q6H PRN PRN Reason: Cough Last Admin: 12/02/18 08:28 Dose: 12.5 mg Rosuvastatin Calcium (Crestor) 10 mg PO HS [facility] Last Admin: 12/01/18 21:49 Dose: 10 mg Tamsulosin HCl (Flomax) 0.4 mg PO DAILY [facility] Last Admin: 12/02/18 13:26 Dose: 0.4 mg Zolpidem Tartrate (Ambien) 5 mg PO HS PRN PRN Reason: Insomnia Last Admin: 12/01/18 21:49 Dose: 5 mg - Labs Labs: 12/01/18 06:43 12/01/18 06:43 PT 18.0 SECONDS (9.7-12.2) H 11/25/18 16:58 INR 1.6 11/25/18 16:58 APTT 43 SECONDS (21-34) H 11/25/18 16:58 Assessment and Plan - Assessment and Plan (Free Text) Assessment: 57 year old male with ESRD, s/p AVfistula placement, seen and examined. Alert and oriented x3, has a dry a productive cough. No wheezing, lungs clear. Discussed with DR Tesfaye, plan to discharge home on oral antibiotics and cough medicine.
[2018-12-02] MEDS ORDERED: guaiFENesin 200 mg/10 ml Syrup UD PO SCH (18:00)
[2018-12-02] MEDS ORDERED: Benzocaine/Menthol (Cepacol) Lozenge MT SCH (18:00)
--- NOTE | 2018-12-02 19:27 | CP.PCM.DIS ---
Provider - Provider Date of Admission: 11/27/18 15:14 Attending physician: Julianna Tesfaye MD Consults: 11/25/18 16:35 General Surgery Consult Routine Comment: AV fistula failure Consulting Provider: Willy Simeon Jr. Consulting Physician: Willy Simeon Jr. Reason for Consult: AV fistula 11/25/18 18:19 Cardiology Consult Routine Comment: Consulting Provider: Karena Escobar Consulting Physician: Karena Escobar Reason for Consult: CHF 11/25/18 18:20 Physician Consult Routine Comment: Consulting Provider: Willy Simeon Jr. Consulting Physician: Willy Simeon Jr. Reason for Consult: AVF 11/25/18 19:32 Nephrology Consult Routine Comment: Consulting Provider: Gisell Bauer Consulting Physician: Gisell Bauer Reason for Consult: ESRD 11/27/18 20:15 Inpatient VOICE STUDIES DIRECTOR Core Measures Referral Routine Comment: routine Physician Instructions: referral Reason For Exam: CHF Diagnosis - Discharge Diagnosis (1) CHF exacerbation Status: Acute (2) Cardiomegaly Status: Acute (3) Chronic congestive heart failure Status: Acute (4) ESRD (end stage renal disease) on dialysis Status: Acute Hospital Course - Lab Results Lab Results: Most Recent Lab Values WBC 5.1 K/uL (4.8-10.8) 12/01/18 06:43 RBC 3.57 Mil/uL (4.40-5.90) L 12/01/18 06:43 Hgb 10.8 g/dL (12.0-18.0) L 12/01/18 06:43 Hct 32.2 % (35.0-51.0) L 12/01/18 06:43 MCV 90.4 fL (80.0-94.0) D 12/01/18 06:43 MCH 30.3 pg (27.0-31.0) 12/01/18 06:43 MCHC 33.6 g/dL (33.0-37.0) 12/01/18 06:43 RDW 19.9 % (11.5-14.5) H 12/01/18 06:43 Plt Count 165 K/uL (130-400) 12/01/18 06:43 MPV 8.6 fL (7.2-11.7) 12/01/18 06:43 Neut % (Auto) 71.1 % (50.0-75.0) 11/25/18 16:58 Lymph % (Auto) 11.6 % (20.0-40.0) L 11/25/18 16:58 [place] % (Auto) 14.5 % (0.0-10.0) H 11/25/18 16:58 Eos % (Auto) 1.7 % (0.0-4.0) 11/25/18 16:58 Baso % (Auto) 1.1 % (0.0-2.0) 11/25/18 16:58 Neut # (Auto) 4.0 K/uL (1.8-7.0) 11/25/18 16:58 Lymph # (Auto) 0.7 K/uL (1.0-4.3) L 11/25/18 16:58 [place] # (Auto) 0.8 K/uL (0.0-0.8) 11/25/18 16:58 Eos # (Auto) 0.1 K/uL (0.0-0.7) 11/25/18 16:58 Baso # (Auto) 0.1 K/uL (0.0-0.2) 11/25/18 16:58 PT 18.0 SECONDS (9.7-12.2) H 11/25/18 16:58 INR 1.6 11/25/18 16:58 APTT 43 SECONDS (21-34) H 11/25/18 16:58 Sodium 126 mmol/L (132-148) L 12/01/18 06:43 Potassium 2.9 mmol/L (3.6-5.2) L 12/01/18 06:43 Chloride 89 mmol/L (98-107) L 12/01/18 06:43 Carbon Dioxide 25 mmol/L (22-30) 12/01/18 06:43 Anion Gap 15 (10-20) 12/01/18 06:43 BUN 32 mg/dL (9-20) H 12/01/18 06:43 Creatinine 3.7 mg/dL (0.8-1.5) H 12/01/18 06:43 Est GFR ( Amer) 12/01/18 06:43 Est GFR (Non-Af Amer) 17 12/01/18 06:43 POC Glucose (mg/dL) 120 mg/dL (65-110) H 11/30/18 06:17 Random Glucose 101 mg/dL (75-110) 12/01/18 06:43 Calcium 8.4 mg/dl (8.6-10.4) L 12/01/18 06:43 Phosphorus 3.6 mg/dL (2.5-4.5) 12/01/18 06:43 Magnesium 1.8 mg/dL (1.6-2.3) 12/01/18 06:43 Total Bilirubin 0.8 mg/dL (0.2-1.3) 11/25/18 16:58 AST 34 U/L (17-59) 11/25/18 16:58 ALT 28 U/L (21-72) 11/25/18 16:58 Alkaline Phosphatase 93 U/L (38-126) 11/25/18 16:58 Troponin I 0.0300 ng/mL (0.00-0.120) 11/25/18 16:58 NT-Pro-B Natriuret Pep 41596 pg/mL (0-900) H 11/25/18 16:58 Total Protein 6.9 g/dL (6.3-8.3) 11/25/18 16:58 Albumin 3.7 g/dL (3.5-5.0) 11/25/18 16:58 Globulin 3.3 gm/dL (2.2-3.9) 11/25/18 16:58 Albumin/Globulin Ratio 1.1 (1.0-2.1) 11/25/18 16:58 Hep Bs Antigen Negative (NEGATIVE) 12/02/18 11:47 Hep Bs Antibody Negative (NEGATIVE) 12/02/18 11:47 Blood Type O POSITIVE 12/01/18 06:45 Antibody Screen Negative 12/01/18 06:45 Discharge Exam - Head Exam Head Exam: ATRAUMATIC, NORMOCEPHALIC Discharge Plan - Discharge Medications Prescriptions: Benzonatate [Tessalon Perles] 100 mg PO BID #20 sgl Azithromycin [Zithromax] 500 mg PO DAILY #5 tablet - Follow Up Plan Condition: GOOD Disposition: HOME/ ROUTINE Instructions: Heart Healthy Diet, Azithromycin (Systemic), Heart Failure, Adult (DC), Benzonatate, End Stage Kidney Disease (DC), Dialysis and Diet Additional Instructions: follow up in the office in 1 week HD to continue as scheduled zithromax 500mg po daily x 5 days tessalon pearls 1 po bid follow up with surgery as advised Referrals: Julianna Tesfaye MD [Staff Provider] - Willy Simeon Jr., MD [Staff Provider] -
--- NOTE | 2018-12-03 13:30 | PQF ---
PROVIDER RESPONSE TEXT: Pt had acute systolic heart failure REVIEWER QUERY TEXT: CHF Acuity and Type Congestive Heart Failure is documented in the Medical Record. Please document the type and acuity (in cludes probable or suspected) Such as: Type: -- Systolic -- Diastolic -- Combined -- Other, please specify Acuity: -- Acute -- Chronic -- Acute on chronic -- Other, please specify Also please document the underlying cause of the CHF (includes probable or suspected) The patient's Clinical Indicators include: 57 Y O M c/o of shortness of breath which has been present for the past 3 days Hx: CHF, ESRD ON HD, HTN Admitted for CHF, ESRD Pro-BNP 98229 CXR--> Central vascular and mild pulmonary venous congestion.Small left pleural effusion associated consolidation. Cardiomegaly. Respiratory: Rales (rales in bases bilaterally Rx: Lasix Query created by: Belen Villaseñor on 11/28/2018 4:28 PM Electronically signed by: Julianna Tesfaye MD 12/03/2018 1:27 PM
== END 2018-12-02 19:27 | disposition home or self-care (01) | DRG 264 ==
LOC: C.ER 16:08 → C.9E 17:35 → C.6T 18:11 → OBSVTOIN 11-27 15:14
PROVIDERS: ADMIT Internal Medicine Critical Care Medicine; ATTEND Internal Medicine Critical Care Medicine
PROC: 5A1D70Z Performance of Urinary Filtration, Intermittent, Less than 6 Hours Per Day (ICD-10-PCS; 2018-11-27)
PROC: 03170ZD Bypass Right Brachial Artery to Upper Arm Vein, Open Approach (ICD-10-PCS; principal; 2018-12-01 12:15)
PROC: 5A1D70Z Performance of Urinary Filtration, Intermittent, Less than 6 Hours Per Day (ICD-10-PCS; 2018-12-02)
DX: I13.2 Hypertensive heart and chronic kidney disease with heart failure and with stage 5 chronic kidney disease, or end stage renal disease (principal); I50.21 Acute systolic (congestive) heart failure; N18.6 End stage renal disease; I42.0 Dilated cardiomyopathy; R06.02 Shortness of breath; E78.00 Pure hypercholesterolemia, unspecified; Z99.2 Dependence on renal dialysis; Z95.810 Presence of automatic (implantable) cardiac defibrillator